=== PATIENT | male | born 1960 | race Caucasian/White ===

== ENCOUNTER → 2020-02-22 | Outpatient (CLI) | payer OTHER ==
[~2020-02-22] MED LIST: ADVAIR 250/501 EA INH; ALBUTEROL SULF8.5 GM INH; Z.0.BENICAR20 MG PO; Z.0.LOVASTATIN20 MG PO; Z.1.LANSOPRAZOLE30 M PO
--- NOTE | 2020-02-22 15:18 | Diagnostic Imaging Report ---
CT LUMBAR SPINE WO HISTORY: Fall COMPARISON: Report from CT of the abdomen/pelvis dated 06/13/2011 TECHNIQUE: Axial CT images of the lumbar spine were obtained without contrast. Coronal and sagittal reconstructions obtained from the axial data. One or more of the following dose reduction techniques were used: Automated exposure control, adjustment of the mA and/or kV according to patient size, and/or utilization of iterative reconstruction technique. DISCUSSION: There are 5 nonrib-bearing lumbar vertebral bodies. Lumbar lordosis is preserved. There is no significant scoliosis or subluxation. Mild compression fracture of the L1 vertebral body superior endplate does not involve the posterior cortex, pedicles, or posterior elements. There is no significant retropulsion. Additional minimal compression fracture the L3 vertebral body superior endplate also does not involve the posterior cortex, pedicles, or posterior elements. There is no significant retropulsion. No additional fracture, compression deformity, or destructive osseous lesion is seen. No gross spinal canal mass is seen. The paravertebral and paraspinal soft tissues are unremarkable. Degenerative changes: Underlying mild multilevel spondylosis is present. There is possible mild canal stenosis at L1-L2 and L2-L3 due to disc bulges. No gross foraminal stenosis is seen. Mild bilateral sacroiliac degenerative changes are present as well. Additional findings: Aortoiliac calcified atherosclerosis. Nonaggressive mixed lucent/sclerotic lesion is seen in the medial left iliac bone. IMPRESSION: 1. Acute mild L1 and minimal L3 vertebral compression fractures without significant retropulsion. 2. No other acute osseous abnormalities. 3. Underlying mild multilevel spondylosis. Signed by: Dr. Jorge Luis Lewis M.D. on 02/22/2020 3:15 PM
== END ==
LOC: CT 14:08
PROVIDERS: ATTEND Family Medicine
DX: S32.010A Wedge compression fracture of first lumbar vertebra, initial encounter for closed fracture (principal); S32.030A Wedge compression fracture of third lumbar vertebra, initial encounter for closed fracture; W11.XXXA Fall on and from ladder, initial encounter
CPT/HCPCS: 72131

== ENCOUNTER → 2020-04-24 | Outpatient (CLI) | payer OTHER | LOC: MRI 07:38 | PROVIDERS: ATTEND Family Medicine | DX: M54.5 Low back pain (principal); W19.XXXA Unspecified fall, initial encounter | CPT/HCPCS: 72148 ==

== ENCOUNTER → 2020-05-25 | Outpatient (CLI) | payer OTHER | LOC: MRI 14:32 | PROVIDERS: ATTEND Family Medicine | DX: S32.030D Wedge compression fracture of third lumbar vertebra, subsequent encounter for fracture with routine healing (principal); M54.5 Low back pain; W11.XXXD Fall on and from ladder, subsequent encounter | CPT/HCPCS: 72146 ==